=== PATIENT | male | born 1980 | race Caucasian/White ===

== ENCOUNTER 2024-07-08 19:11 | Emergency (ER) | payer OTHER, SELFPAY ==
--- NOTE | 2024-07-08 19:19 | ED.CHESTPAIN ---
HPI - Chest Pain General Stated Complaint: Chest Pain/Back Pain Source: patient and RN notes reviewed Mode of arrival: ambulatory Limitations: no limitations History of Present Illness HPI narrative: Patient is a 43-year-old male who presents to the [facility] with complaints of left-sided chest pain. Patient states that the chest pain radiates into his back and neck. He describes the pain as an intermittent pressure. The pain started a few days ago but worsened in severity today. He denies any accompanying nausea or dizziness. States that he has had some slight shortness of breath with the pain. He denies recent cough for, illness, or fever. Denies any cardiac history. Related Data Allergies Allergy/AdvReac Type Severity Reaction Status Date / Time strawberry AdvReac Severe Unknown Unverified 08/13/23 11:51 amoxicillin AdvReac Intermediate Hives Verified 08/13/23 11:51 Review of Systems Review of Systems: CONSTITUTIONAL: Denies fever, chills, or sweats. EYES: Denies visual changes, redness, or discharge. ENT: Denies otalgia and sore throat CARDIOVASCULAR: Reports chest pain but denies palpitations or edema. RESPIRATORY: Denies cough but reports intermittent dyspnea. GASTROINTESTINAL: Denies abdominal pain, nausea, vomiting, or diarrhea. GENITOURINARY: Denies dysuria or hematuria. SKIN: Denies rash or itching. MUSCULOSKELETAL: Reports back pain, but denies joint pain or myalgia. NEUROLOGIC: Denies headache, numbness, or weakness. Pertinent positives per HPI. PMFSH Comments At the time of my signature, I reviewed and agree with the nursing past medical, surgical, social, and family history. There is no relevant family history pertinent to the patient complaint. Exam Narrative: GENERAL: This is a well-nourished, well-developed patient, in no apparent distress. HEAD: normocephalic, atraumatic. EYES: Sclera clear/white. Vision is grossly intact. EARS: External ears normal. Hearing grossly intact. NOSE: External nose normal with no obvious nasal discharge, nares without redness, no rhinorrhea. THROAT: Mucous membranes moist, posterior pharynx clear. NECK: Neck supple, non-tender without lymphadenopathy, masses or thyromegaly. CARDIOVASCULAR: Regular rate and rhythm without murmurs, gallops, or rubs. RESPIRATORY: Clear to auscultation. Breath sounds equal bilaterally. No wheezes, rales, or rhonchi. GASTROINTESTINAL: Abdomen soft, non-tender, nondistended. Bowel sounds are active. No hepato-splenomegaly, or palpable masses. No guarding. SKIN: warm, intact with no suspicious lesions or rash, good texture and turgor. NEURO: awake, alert, and oriented to person, place and time. There were no obvious focal neurologic abnormalities. Course Course Level of Care: Express Care Visit Vital Signs Vital signs: Vital Signs Temperature 98.4 F 07/08/24 19:20 Pulse Rate 71 07/08/24 19:20 Respiratory Rate 16 07/08/24 19:20 Blood Pressure 126/81 07/08/24 19:20 Pulse Oximetry 99 07/08/24 19:20 Temperature 98.4 F 07/08/24 19:20 Pulse Rate 71 07/08/24 19:20 Respiratory Rate 16 07/08/24 19:20 Blood Pressure 126/81 07/08/24 19:20 Pulse Oximetry 99 07/08/24 19:20 Reviewed Transfer Transfered to: [facility] Transportation: Other (private vehicle) Transfer rationale: Appropriate testing, evaluation, and treatment of chest pain Accepting physician: CATRINA Billings [facility] - Chest Pain MDM Narrative Medical decision making narrative: Patient transferred to [facility] for appropriate testing, evaluation, and treatment chest pain. Accepting provider is CATRINA Billings. Patient offered ambulance transport but declined; will transport via private vehicle. Differential Diagnosis Differential diagnosis: Likely stable angina, atypical chest pain and chest pain ECG Data EKG #1: ECG completion date: 07/08/24 ECG completion time: 19:32 Interpretation: Sinus bradycardia. Normal axis, normal intervals, no acute ST elevation. Critical Care Time Critical Care Time Critical Care Time: No Discharge Plan Discharge Clinical Impression: Chest pain Qualifiers: Chest pain type: unspecified Qualified Code(s): R07.9 - Chest pain, unspecified Patient Disposition: Acute Care Hospital Condition: Stable Additional Instructions: Go directly to [facility] for evaluation. Patient Language: Latvian Follow-up/Referrals: PHYSICIAN,QUARTER BACKER [Primary Care Provider] - Time of Disposition: 19:35
[2024-07-08 19:20] VITALS: BP 126/81; PULSE 71; RESP 16; TEMP 36.9; O2SAT 99
--- NOTE | 2024-07-08 19:22 | ECG_ITS ---
Test Date: 2024-07-08 19:32:59 Measurements Intervals [place] Rate: 59 P: 29 MO: 151 QRS: 10 QRSD: 108 T: 14 QT: 383 QTc: 382 Interpretive Statements SINUS BRADYCARDIA BASELINE ARTIFACT- I, II, III, AVR, AVL, AVF, V1-V6 BORDERLINE ECG No previous ECG available for comparison Electronically Signed On 07-08-2024 19:58:56 LEAD DENTAL ASSISTANT by Saran Vidal D.O.
== END 2024-07-08 19:33 | disposition short-term general hospital (02) ==
PROVIDERS: Emergency Provider Nurse Practitioner
DX: R07.9 Chest pain, unspecified (principal)
CPT/HCPCS: 93005; 99213; G0463

== ENCOUNTER 2024-07-08 20:22 | Emergency (ER) | payer OTHER, SELFPAY ==
--- NOTE | ~2024-07-08 | XR_ITS ---
CHEST RADIOGRAPH, PA AND LATERAL CLINICAL HISTORY: cp . COMPARISON: None available TECHNIQUE: PA and lateral views of the chest. FINDINGS The cardiomediastinal silhouette is unremarkable. The lungs are clear. Visualized osseous structures and soft tissues are unremarkable. IMPRESSION: No focal infiltrate or effusion. Reviewed, dictated and finalized at location A. OR ADVISORY
[2024-07-08 20:24] VITALS: BP 150/85; PULSE 61; RESP 15; TEMP 37.1; O2SAT 99
--- OUTSIDE RECORDS SUMMARY | 2024-07-08 20:24 | XMS_ITS | CONTINUITY OF CARE DOCUMENT ---
Author Name александр janissundar Address Unknown Organization [facility] Address [address] [place] [address] Phone [phone] Care Team Providers Care Emt/Dispatcher Name Role Phone Bennett Olivo MD Unavailable [phone] TAI HOLGUIN MD Unavailable [phone] TAI HOLGUIN MD Unavailable [phone] PROBLEMS Condition Status Date Provider Notes Cardiology examination active Bennett Olivo MD Chest pain active Bennett Olivo MD Anxiety active Bennett Olivo MD Near syncope active Bennett Olivo MD ENCOUNTERS Date Type Provider Location Encounter Diag nosis - In-person encounter Office Visit Bennett Olivo MD [facility] AnxietyNear syncope - In-person encounter Office Visit Bennett Olivo MD [facility] Cardiology examinationChest pain VITAL SIGNS Date Observation Value Provider Body Mass Index (Ratio) 33.57 kg/m2 Yobany Olivo MD pulse rate 60 /min Tino abhi y blood pressure, cuff size regular Ja rret blood pressure, diastolic 79 mm[Hg] Ja rret blood pressure, systolic 130 mm[Hg] Jar ret respiratory rate E&M 12 /min oxygen saturation, oximetry 98 % weight E&M 234 [lb_av] Tino y height E&M 70 [in_i] Tino y weight E&M 230 [lb_av] Jeannie Mcfarlane in Body Mass Index (Ratio) 33.00 kg/m2 Yobany Olivo MD blood pressure, diastolic 77 mm[Hg] Zee Chamberlain blood pressure, systolic 117 mm[Hg] Denys Chamberlain oxygen saturation, oximetry 97 % Lenore Chamberlain pulse rate 65 /min Lenore vines height E&M 70 [in_i] Lenore vines weight E&M 230 [lb_av] Lenore vines respiratory rate E&M 16 /min Hetal Chamberlain blood pressure, cuff size large Zee Chamberlain ALLERGIES Allergy Name Onset Date Reaction Criticality Status AMOXICILLIN Low Criticality active HISTORY OF MEDICATION USE No Known Medication SOCIAL HISTORY Date Observation Value Provider drug use, illicit, d rug of choice marijuana Bennett Olivo MD drug use yes Bennett Olivo MD alcohol use no Bennett Olivo MD social history reviewed E&M revi ewed - no changes required Bennett Olivo MD social history E&M S moking History: P atient currently smokes every day. P atient has been counseled to quit. Bennett Olivo MD smoking/tobacco cess ation, patient education and counseling yes Bennett Olivo MD smoking status Current every day smoker U fidel Olivo MD drug use, illicit, d rug of choice marijuana Bennett Olivo MD drug use yes Bennett Olivo MD alcohol use, average drinks per day 1 /d Bennett Olivo MD alcohol use yes Bennett Olivo MD smoking/tobacco cess ation, patient education and counseling yes Bennett Olivo MD social history E&M S moking History: P kirsten currently smokes every day. P atregina has been counseled to quit. Bennett Olivo MD social history reviewed E&M revi ewed - no changes required Bennett Olivo MD smoking history, tot al pack/day 1 Lenore Chamberlain cigarette use yes Lenore Betancur nd smoking status Current every day smoker M vishal Chamberlain INSURANCE PROVIDERS Payer name Policy type / Coverage type [place] red alliance party ID [id number] [place] 77 [id number] ADVANCE DIRECTIVES Name Date DISCUSSED - NO DECISION MADE TREATMENT PLAN Date Name Performer [id number],C,n o recurrence since August 2022. stable. Bennett Olivo MD [id number],C,does not use medication, uses therapy Bennett Olivo MD [id number],C,denies any CP Bennett Olivo MD [id number],C,A typical. WIll do a routine stress test and an echo Bennett Olivo MD Cardiology:no recurr ence since August 2022. stable. Bennett Olivo MD Cardiology:does not use medicati on, uses therapy Bennett Olivo MD Cardiology:denies any CP Bennett workman MD Cardiology:Atypical. WIll do a routine stress test and an echo Bennett Olivo MD Date Name TSH, 3RD GENERATION W/REFLEX TO FT4 LIPID PANEL COMPREHENSIVE METABO LIC PANEL, W/EGFR Complete Echo Stress Routine HISTORY OF PROCEDURES Procedure Date Procedure Name Provider Procedure Notes S tatus EKG Bennett Olivo MD completed
--- OUTSIDE RECORDS SUMMARY | 2024-07-08 20:24 | XMS_ITS | Data Portability ---
Author Organization [place] - [facility] [employer], Main Office Address [address] [place] [address] Assessment Encounter Date Assessment Date Assessment LastModified by Organization Details LastModified Time 01/17/2023 01/17/2023 Assessment: LYNDSEY PLMD Hypoventilation Plan: The following were reviewed and explained to the patient: primary care/referral note [facility] home sleep study 11/30/21 RDI = 21, supine RDI = 30 General information on sleep disordered breathing, evaluation of sleep disordered breathing, treatment with PAP therapy, and living with PAP therapy were covered. PSG is medically necessary to determine the degree of and management of sleep apnea. Split night sleep study ordered. We discussed with the patient the impact of weight on: Sleep disordered breathing We discussed with the patient the benefit of PAP therapy on: Sleep disordered breathing Mood disorder Educated the patient on sleep hygiene measures. Relaxing rituals to rest easy, understanding foods with positive and negative impact on sleep, creating a peaceful sleep environment, timing of exercise, using herbal sleep aids, and practicing sleep-friendly meditation were covered. To determine how much sleep is needed, the patient will assess where he falls on the spectrum, examine what lifestyle factors such as work schedules and stress are affecting the quality and quantity of sleep. In general, adults need 7-9 hours of sleep. Educated the patient regarding foods that promote sleep. These include but are not limited to cherries, bananas, toast, oatmeal, and warm milk. Educated the patient regarding foods and drinks to avoid before bedtime. These include but are not limited to aged cheese, chocolate, spicy foods, tomato-based sauces, soy, ginseng tea and processed meat. Advocated influenza vaccination annually and pneumonia vaccination in 2044. Advocated weight loss through diet and exercise. Patient's ideal body weight according to height and gender is up to 180 lbs. Encouraged patient to adjust caloric intake to maintain/achieve ideal body weight, emphasizing on fruits, vegetables, whole grains, and fat-free or low-fat products. These include lean meats, poultry, fish, beans, eggs, and nuts and foods that are low in saturated fats, trans-fats, cholesterol, salt (sodium), and glycemic index. Stressed the importance of regular exercise up to the patient's capacity limits. In this case, we recommend 20 min daily walking, 2 days a week of resistance training. Patient to monitor BP daily and bring records to PCP for further management. Follow-up: 1 week after split night sleep study [email or web address] Not available 01/17/2023 11:29:18 Plan of Treatment Reminders Order Date Submit Date Provider Last Modified By Organization Details Last Modified Time Details Appointments None recorded. Lab None recorded. Referral None recorded. Procedures None recorded. Surgeries None recorded. Imaging polysomnog keara, split night - No Auth required 2022 023 [email or web address] [address] [facility], [address] [place], [address], 14:23:55 Medication Orders None recorded. Patient TargetsNo targets recorded. Patient InstructionsNo instructions recorded. Reason for Referral None Reported. Results Created Date Observation Date Name Description Value Unit Range Abnormal Flag Note LastModifiedBy Organization Detail LastModifiedTime 01/18/2011/30/2021 polys omnog keara, diagn ostic , 6 yrs or older No observ ation record ed. BARCODE Not Available 2022 09:54:44 Result Notes None recorded. 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 Procedures Surgical History None recorded. Imaging Results Imaging Date Name Status LastModified by Organiz ation Details LastModified Time 11/30/2021 polysomnogr am, diagnostic, 6 yrs or older completed BARCODE Information not available 01/17/2023 09:54:44 Procedure Notes None recorded. Medical Equipment None Reported. Allergies Allergen ID Allergen Name Allergen Category Reaction Reaction Severity Criticality Documentation Date Start Date Code Code System Note Provider Name and Address Organization Details Recorded Time 00120 amoxicill in medicatio n hives Not available Not available 07/27/2022 723 RxNorm Not Available [facility] 3 01:00:19 Medications Name Sig Start Date Stop Date Status Note LastModified by Organization Details LastModified Time moxifloxaci n 400 mg tablet TAKE 1 TABLET BY MOUTH EVERY DAY FOR 7 DAYS 01/17 completed Not Available Not Available Not Available acetaminoph en 300 mg-codeine 30 mg tablet 01/17 completed Not Available Not Available Not Available ID NOW COVID-19 Test Kit TEST DIRECTED TODAY 11/03 completed Not Available Not Available Not Available Vitals Date Recorded Body mass index (BMI) Body mass index (BMI) Body height Body height Oxygen saturation Oxygen saturation in Arterial blood by Pulse oximetry Oxygen saturation Oxygen saturation in Arterial blood by Pulse oximetry Heart rate Body temperature Body temperature Body weight Body weight Systolic blood pressure Diastolic blood pressure Provider Name and Address Organization Details Last Updated DateTime 3 33.3 kg/m2 33.3 kg/m2 177.8 cm 177.8 cm 98 % 98 % 99 % 99 % 91 /min 98.2 [degF] 98.2 [degF] 612966. 43 g 925573. 43 g 139 mm[Hg] 85 mm[Hg] Not Available [facility] 3 00:58:26 Date Recorded Body height Body mass index (BMI) Body weight Body temperature Heart rate Oxygen saturation Oxygen saturation in Arterial blood by Pulse oximetry Systolic blood pressure Diastolic blood pressure Provider Name and Address Organization Details Last Updated DateTime 3 177.8 cm 33 kg/m2 193634. 25 g 98.3 [degF] 63 /min 96 % 96 % 114 mm[Hg] 70 mm[Hg] BENJAMIN Molina - S [place] [employer] 11:00:37 Date Recorded Heart rate Respiratory rate Provider Yousuf wall and Address Organization Details Last Updated DateTime 01/17/2023 63 /min 15 /min Guille Ramsey MD [address], [facility] [address], [place], [address], [facility] [employer] [facility] 01/17/2023 11:05:36 Social History Question Answer Notes LastModified by Organizat ion Details LastModified Time Tobacco Smoking Status Former Smoker Aminah Howell MA null, [facility] [employer] [facility] 01/17/2023 10:54:41 What Is Your Level Of Alcohol Consumption? Occasional [id number] Information not available 07/27/2022 What Is Your Level Of Caffeine Consumption? Occasional [id number] Information not available 07/27/2022 In The 14 Days Before Symptom Onset, Have You Had Close Contact With A Laboratory-confir med COVID-19 While That Case Was Ill? No Information not available 01/17/2023 In The 14 Days Before Symptom Onset, Have You Had Close Contact With A Person Who Is Under Investigation For COVID-19 While That Person Was Ill? No Information not available 01/17/2023 Are You Currently Employed? Yes Information not available 01/17/2023 What Type Of Diet Are You Following? REGULAR Information not available 01/17/2023 Which Illicit Or Recreational Drugs Have You Used? Marijuana [id number] Information not available 07/27/2022 Do You Or Have You Ever Used E-cigarettes Or Vape? Current User Of Electronic Cigarettes Information not available 01/17/2023 Do You Have An Electrostatic Air Filter? 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 No Information not available 01/17/2023 Do You Have A Humidifier? Yes Information not available 01/17/2023 Do You Have Moisture Problems In Your Home? No Information not available 01/17/2023 What Was The Date Of Your Most Recent Tobacco Screening? 01/17/2023 Information not available 01/17/2023 Have You Ever Been Counseled For Unhealthy Alcohol Use? No [id number] Information not available 07/27/2022 Do You Have Any Pets? No Information not available 01/17/2023 Do You Use Your Seat Belt Or Car Seat Routinely? Yes Information not available 01/17/2023 Do You Have Smoke And Carbon Monoxide Detectors In Your Home? Yes Information not available 01/17/2023 Are You Passively Exposed To Smoke? No Information no t available 01/17/2023 Do You Or Have You Ever Used Smokeless Tobacco? Never Used Smokeless Tobacco Information not available 01/17/2023 Do You Use Any Illicit Or Recreational Drugs? Yes [id number] Information not available 07/27/2022 Do You Use Sunscreen Routinely? Yes Information not available 01/17/2023 Has Tobacco Cessation Counseling Been Provided? No [id number] Information not available 07/27/2022 Have You Recently Traveled Abroad? No Information not available 01/17/2023 Have You Used IV Drugs? No [id number] Information not available 07/27/2022 Do You Have Any Dietary Restrictions? No Information not available 01/17/2023 Do You Or Have You Ever Used Any Other Forms Of Tobacco Or Nicotine? Yes Information not available 01/17/2023 Sex: Unknown Functional Status Question Answer Note LastModified by Organizat ion Details LastModified Time What is your exercise level? Occasional Information not available 01/17/2023 Mental Status None recorded. Family History Relationship Description Onset Age of this Age Resolved Age Notes LastModified by Organization Details LastModified Time Mother Hypertensive disorder [id number] Not available 07/27/2022 00:58:04 Father Leukemia [email or web address] Not available 0 01/16/2023 18:52:06 Paternal Grandmother Malignant tumor of breast [email or web address] Not available 2022 18:52:40 Maternal Grandmother Malignant tumor of breast [email or web address] Not available 2022 18:52:55 Maternal Grandfather Malignant tumor of lung [email or web address] Not available 2022 18:53:05 Daughter Obstructive sleep apnea syndrome [email or web address] Not available 2022 18:53:58 Medical History Condition Response BLINDNESS N CYSTITIS N RHEUMATIC FEVER N BLADDER PROBLEMS N KIDNEY STONES N Enlarged Prostate N MRSA N SLEEP APNEA N INFECTIOUS DISEASE N HEART ARRHYTHMIA N LUNG DISEASE/DISORDER N PROSTATE N INSOMNIA N HISTORY OF DRUG ABUSE N COPD N RADIATION / CHEMOTHERAPY N HIGH CHOLESTEROL / HYPERLIPIDEMIA N HYPERTHYROIDISM N UTI N BLOOD DISEASES N EDEMA N HYPOTHYROIDISM N SHINGLES N BOWEL PROBLEMS N DEPRESSION (INCLUDING POST ) Y BACK / NECK PROBLEMS N HAVE YOU BEEN HOSPITALIZED OR SEEN IN [facility] ER IN THE PAST YEAR ? N STROKE/TIA N THYROID DISEASE N BENIGN PROSTATIC HYPERPLASIA N DIALYSIS N OBESITY N GERD/NAUSEA N ANEURYSM N OSTEOPOROSIS N URINARY/BLADDER/KIDNEY PROBLEMS N Increased Urination N CORONARY ARTERY DISEASE (CAD) N ARTHRITIS N USE OF BLOOD THINNERS N NO SIGNIFICANT PAST MEDICAL HISTORY N DIABETES, TYPE N EMPHYSEMA N GASTROINTESTINAL DISORDER N PARKINSON N GASTROINTESTINAL BLEEDING N BLOOD CLOTS N Difficulty Urinating N ASTHMA N HEPATITIS / LIVER DISEASE N CATARACTS N GOUT N SLEEP DISORDER N ALZHEIMER'S DISEASE N ERECTILE DYSFUNCTION N HERPES N HEADACHES/MIGRAINES N SEIZURES/EPILEPSY N GI PROBLEMS N Low Testosterone N HEART MURMUR N PACEMAKER N DIZZINESS N HEART DISEASE/HEART PROBLEMS N AIDS/HIV N KIDNEY DISEASE N MULTIPLE SCLEROSIS N LIVER DISEASE N MALE HYPOGONADISM N HYPERTENSION N CANCER: SPECIFY N TOURETTE'S N BLOOD TRANSFUSION N ANESTHESIA COMPLICATIONS N ANEMIA/BLOOD DISORDER N ATRIAL FIBRILLATION N AUTOIMMUNE DISEASE N TUBERCULOSIS N GLAUCOMA N Past Encounters Encounter ID Performer Location Encounter Start Date Encounter Closed Date Diagnosis/Indication Diagnosis SNOMED-CT Code Diagnosis ICD10 Code Diagnosis Note [id number] [facility] [address] [address] 11/03/2021 00:00:00 11/03/2021 13:23:44 [id number] [facility] [address] [address] 12/15/2021 00:00:00 12/15/2021 11:51:04 [id number] Guille Ramsey MD [facility] [address], [facility] [address] [place] [address] 01/17/2023 10:39:35 01/17/2023 11:31:02 Sleep apnea 52417061 G47.30 G47.33 G47.36 G47.61 Health Concerns Section Related Observation LastModified by Organization Detai ls LastModified Time None Recorded Concern Status LastModified by Organization Details LastModified Time None Recorded Advance Directives Directive None Recorded Payers Encounter Date Sequence Insurance Name Policy Number Policy Perez Covered Member ID Perez Member ID Guarantor Name 01/17/2023 1 [employer] - [employer] (PPO) Josh Villatoro [id number] Josh Villatoro Notes Date Note Type Note Provider Name and Address Organization Details Recorded Time 01/17/2023 text/html Primary care/Ref erring provider: Jan Sherman MD During the [facility] home sleep study on 11/30/21, RDI = 21, supine RDI = 30. At home, the patient sleeps from 3 am to 10 am and wakes up without an alarm. Snoring: moderate, since .Snorting: noChoking: noCoughing: yesGasping: noGagging: noSighing: yesWitnessed apnea: yesTwitching or jerking of leg(s), arm(s), body, head: yesTeeth grinding: noTeeth clenching: noSleeptalking: yesSleepwalking: noSleep crying: noBedwetting: noTongue/lip/gum/cheek biting: noSleeping with open mouth: yesSleep paralysis: noHypnagogic hallucinations: noHypnopompic hallucinations: noVivid dreams: noDifficulty with sleep onset: yesDifficulty with sleep maintenance: yesSleep interruptions: for no known reasonsPatient wakes up with: fatigue, xerostomia, sore throat, hoarse voice, headaches, disorientation, cognitive impairmentDaytime cataplexy: noMorning hypersomnolence: noAfternoon hypersomnolence: yesCaffeine sources in diet: coffee 1 cup per day, tea 1 cup per day Associated medical and psychiatric conditions:Congestive heart failure: noCoronary artery disease: noMyocardial infarction: noHypertension: noStroke: noBronchial asthma: noChronic obstructive pulmonary disease: noDepression: noBipolar disorder: noAnxiety: noPanic disorder: noPosttraumatic stress disorder: noAttention deficit and hyperactivity disorder: noObsessive Compulsive disorder: noSchizophrenia: noSchizoaffective disorder: noPersonality disorder: noChronic analgesic use: noChronic sedative/hypnotic use: no EPWORTH SLEEPINESS SCALE (ESS) CHANCE OF DOZING SCORE0 = would never doze1 = slight chance of dozing2 = moderate chance of dozing3 = high chance of dozing SITUATION AND CHANCE OF DOZINGSitting and reading - 3Watching television - 3Sitting inactive in a public place (e.g. a theater or meeting) - 0As a passenger in a car for an hour without a break - 3Lying down to rest in the afternoon when circumstances permit - 1Sitting and talking to someone - 0Sitting quietly after lunch without alcohol - 0In a car, while stopped for a few minutes in the traffic - 0TOTAL SCORE 10Subjectively, patient has a moderate chance of dozing. Guille Ramsey MD [address] [place] [address], [place] [address], [place], [address], [place] [facility] 01/17/2023 11:29:28
--- OUTSIDE RECORDS SUMMARY | 2024-07-08 20:24 | XMS_ITS | Clinical Summary ---
Author Organization [facility] [employer] [place] Address [address] [facility] [address] [place] [address] Care Team Providers Care Stave Grader Name Role Phone Unavailable Primary Care Provider Unavailabl e Allergies Active Allergy Reactions Criticality Noted Date Comments Amoxicillin Hives High 01/13/2020 Medications No known medications Active Problems No known active problems Encounters Date Type Department Care Team Description 07/01/2024 External Device Data [facility]STRACTION Provider, Abstract 06/18/2024 External Device Data [facility] Provider, Abstract 06/17/2024 External Device Data [facility]STRACTION Provider, Abstract from Last 3 Months Immunizations Immunization Administration Dates Next Due (ADACEL/BOOSTRIX)(10 YR UP) TDAP VACCINE, 0.5ML, IM 01/13/2020 Family History Medical History Relation Name Comments Asthma Brother Han Villatoro Asthma Daughter Mckenzie Villatoro Hypertension Father Rayray Villatoro Leukemia Father Rayray Villatoro Other Father Rayray Villatoro hepatitis C Cancer Maternal Grandfather Cancer Maternal Grandmother Hypertension Mother Shanta Villatoro Cancer Paternal Grandfather Cancer Paternal Grandmother No Known Problems Sister Relation Name Status Comments Brother Han [place] Alive Daughter Mckenzie [place] Alive Father Rayray Villatoro Maternal Grandfather Maternal Grandmother Mother Shanta Villatoro Alive Paternal Grandfather Paternal Grandmother Sister Alive Social History Tobacco Use Types Packs/Day Years Used Date Smoking Tobacco: Former Cigarettes 0.3 5 0 05/28/2011 - 05/28/2016 Cigars Smokeless Tobacco: Never Alcohol Use Standard Drinks/Week Comments Yes 4 (1 standard drink = 0.6 oz pur e alcohol) Sex and Gender Information Value Date Recorded Sex Assigned at Not on file Legal Sex Male 11:52 AM CDT Gender Identity Not on file Sexual Orientation Not on file Last Filed Vital Signs Vital Sign Reading Time Taken Comments Blood Pressure 124/74 10/03/2023 2:21 PM CDT Pulse 71 01/13/2020 10:40 AM CDT Temperature 36.4 C (97.6 F) 01/13/2020 10:40 AM CDT Respiratory Rate 18 01/13/2020 10:40 AM CDT Oxygen Saturation 98% 01/13/2020 10:40 AM CDT Inhaled Oxygen Concentration - - Weight 102.1 kg (225 lb) 10/03/2023 2:21 PM CDT Height 177.8 cm (5' 10 ) 10/03/2023 2:21 PM CDT Body Mass Index 32.28 10/03/2023 2:21 PM CDT Plan of Treatment Health Maintenance Due Date Last Done Comments Pre-Diabetes and Diabetes Screening 1979 HEPATITIS B VACCINES (1 of 3 - 19+ 3-dose series) 11/17/1998 INFLUENZA VACCINE (#1) 2023 DTAP/TDAP/TD VACCINES (2 - T d or Tdap) 01/12/2030 01/13/2020 HPV VACCINES Aged Out No longer eligi ble based on patient's age to complete this topic PNEUMOCOCCAL VACCINE 0-64 YEARS Aged Out No longer eligible based on patient's age to complete this topic Insurance [address] [place] [address] [facility] OPEN ACCESS * Guarantor: [employer]C) Account Type Relation to Patient Date of Phone Billing Address Corporate Employer ATTN: [employer] [address] [address] [employer]
--- NOTE | 2024-07-08 20:28 | ECG_ITS ---
Test Date: 2024-07-08 20:31:09 Measurements Intervals [place] Rate: 60 P: 7 AL: 125 QRS: 17 QRSD: 104 T: 31 QT: 355 QTc: 356 Interpretive Statements SINUS RHYTHM BASELINE ARTIFACT- I, II, III, AVR, AVL NORMAL ECG Compared to ECG 07/08/2024 19:32:59 NO SIGNIFICANT CHANGE Electronically Signed On 07-09-2024 07:10:33 HAMMER SMITH by Saran Vidal D.O.
[2024-07-08 20:46] LABS: Basophils Percent Auto 0.3 % (0.2-1.2); Eosinophils Percent Auto 0.7 % (0-4.4); Hemoglobin 14.1 g/dL (14.0-18.0); Immature Granulocyte Absolute 0.01 K/mm3 (0.00-0.031); Immature Granulocyte Percent A 0.2 % (0-0.5); Lymphocytes Absolute Auto 1.38 K/mm3 (0.9-3.2); Lymphocytes Percent Auto 23.4 % (18.3-44.2); Mean Corpuscular HGB Conc 34.4 g/dl (32-36); Mean Corpuscular Hemoglobin 31.8 pg (26-34); Mean Corpuscular Volume 92.3 fl (80-100); Mean Platelet Volume 9.8 fl (7.4-10.4); Monocytes Absolute Auto 0.7 K/mm3 (0.1-0.6); Monocytes Percent Auto 12.4 % (2.6-8.5); Neutrophils Absolute Auto 3.7 K/mm3 (1.3-6.7); Platelet Count Result 210 k/mm3 (150-375); Red Blood Count 4.44 M/mm3 (4.6-6.20); Red Cell Distribution Width 12.5 % (11.5-14.5); White Blood Count 5.9 K/mm3 (4.5-10.0)
[2024-07-08 20:59] LABS: INR 0.9; Prothrombin Time 12.9 Seconds (11.1-14.7)
[2024-07-08 21:00] LABS: Partial Thromboplastin Time 27.2 Seconds (22.3-36.8)
[2024-07-08 21:34] LABS: Alanine Aminotransferase 35 U/L (6-50); Albumin Level 4.1 g/dL (3.5-5.1); Alkaline Phosphatase 59 U/L (38-126); Anion Gap 10 mmol/L (4-12); Aspartate Amino Transferase 34 U/L (17-59); Bilirubin,Total 0.5 mg/dL (0.2-1.3); Blood Urea Nitrogen 11 mg/dL (9-20); Calcium 8.9 mg/dL (8.4-10.2); Carbon Dioxide 23 mmol/L (22-30); Chloride 105 mmol/L (98-107); Estimated CRCL calculation 116 ml/min; Estimated Glomerular Filt Rate > 60; Glucose 86 mg/dL (65-110); Lipase 56 U/L (23-300); Sodium 138 mmol/L (137-145); Troponin I < 0.012 ng/mL (0.000-0.034)
--- NOTE | 2024-07-08 23:28 | ECG_ITS ---
Test Date: 2024-07-08 23:34:04 Measurements Intervals [place] Rate: 55 P: 9 NV: 128 QRS: 24 QRSD: 105 T: 29 QT: 385 QTc: 368 Interpretive Statements SINUS BRADYCARDIA BORDERLINE ECG Compared to ECG 07/08/2024 20:31:09 HEART RATE HAS DECREASED Electronically Signed On 07-09-2024 07:04:26 CHARTERED ACCOUNTANT by Saran Vidal D.O.
--- OUTSIDE RECORDS SUMMARY | 2024-07-08 23:53 | XMS_ITS | CONTINUITY OF CARE DOCUMENT ---
Author Name алкесандр janissundar Address Unknown Organization [facility] Address [address] [facility] [address] [place] [address] Phone [phone] Care Team Providers Care Air Conditioning Supervisor Name Role Phone Bennett Olivo MD Unavailable TAI HOLGUIN MD Unavailable TAI HOLGUIN MD Unavailable [phone] PROBLEMS Condition Status Date Provider Notes Cardiology examination active Bennett Olivo MD Chest pain active Bennett Olivo MD Anxiety active Bennett Olivo MD Near syncope active Bennett Olivo MD ENCOUNTERS Date Type Provider Location Encounter Diag nosis - In-person encounter Office Visit Bennett Olivo MD [facility] AnxietyNear syncope - In-person encounter Office Visit Bennett Olivo MD [facility] Cardiology examinationChest pain VITAL SIGNS Date [...] Payer name Policy type / Coverage type [place] red republican ID CIGNA\[facility] [employer] 77 [id number] ADVANCE DIRECTIVES Name Date DISCUSSED - NO DECISION MADE TREATMENT PLAN Date Name Performer [id number],C,n o recurrence since August 2022. stable. Bennett Olivo MD [id number],C,does not use medication, uses therapy Bennett Olivo MD [id number],C,denies any CP Bennett Olivo MD [id number],C,A typical. WIll do a routine stress test [...]
--- OUTSIDE RECORDS SUMMARY | 2024-07-08 23:53 | XMS_ITS | Clinical Summary ---
Author Organization [facility] [place] Address [address] [facility] [address] [place] [address] Care Team Providers Care Chicken Catcher Name Role Phone Unavailable Primary Care Provider [...] Sister Relation Name Status Comments Brother Han Murray Alive Daughter Mckenzie Murray Alive Father Rayray Villatoro Maternal Grandfather Maternal [...] to complete this topic Insurance [address] [place] [address] COUNTS INCLUDE 234 BEDS AT THE [facility] OPEN ACCESS * Guarantor: [employer]) Account Type Relation to Patient Date of Phone Billing Address Corporate Employer ATTN: [employer] [address] [address] [employer]
[2024-07-09 00:04] VITALS: O2SAT 99
--- NOTE | 2024-07-09 00:05 | ED_ITS ---
HPI - Chest Pain General Chief Complaint: Chest Pain Stated Complaint: chest pain Time Seen by Provider: 07/08/24 23:35 Source: patient Mode of arrival: ambulatory Limitations: no limitations History of Present Illness HPI narrative: Patient presents with chest pain that started faintly. Left sided for the past 3 days. Described as a pressure that radiates to left back, occurring intermittently. Also having body aches with intermittent right flank pain (yesterday, not now) and right neck pain/tightness. He has felt more lethargic. Has not taken anything at home for pain, not even Tylenol/ibuprofen. Has had a dry non productive cough. No nausea/vomiting/fever/chills. No cardiac history or respiratory history. Patient states he has a primary care physician helped him arrange a stress test last year which was normal. Has not followed with that custom applicator since. Denies shortness of breath except when he went outside in the cold. Denies lower extremity edema, hemoptysis, recent travel/surgery/trauma, prior PE/DVT, or exogenous hormones. Cardiac risk factors: HTN - , HLD - , smoke + (vape nicotine), obese +, DM - , prior SD/TIA/CVA - , Fam Hx SD <65yo - Related Data Allergies Allergy/AdvReac Type Severity Reaction Status Date / Time strawberry AdvReac Severe Unknown Verified 07/08/24 20:49 amoxicillin AdvReac Intermediate Hives Verified 07/08/24 20:49 PMFSH Family History Family History (Updated 07/10/24 @ 21:32 by Sangeeta Posada MD) Mother Hypertension Father Hypertension Sibling Asthma Social History Social History (Updated 07/10/24 @ 21:37 by Sangeeta Posada MD) Tobacco type: e-cigarettes/vaping Exam 2 Narrative: GENERAL: Well-appearing, well-nourished, and in no acute distress. HEAD: Normocephalic, atraumatic. EYES: Non injected, non icteric ENT: Nares clear, no rhinorrhea or epistaxis. NECK: Supple. CHEST: Speaking in full sentences. No respiratory distress. non labored. Clear to auscultation. HEART: Regular rate and rhythm. . ABDOMEN: Soft, nondistended. EXTREMITIES: Normal range of motion. No lower extremity edema. : No CVA tenderness. SKIN: Warm, dry, no rash. NEURO: No focal deficits. Alert and oriented x3. PSYCH: Normal mood and affect. Course Vital Signs Vital signs: Vital Signs Temperature 98.8 F 07/08/24 20:24 Pulse Rate 61 07/08/24 20:24 Respiratory Rate 15 07/08/24 20:24 Blood Pressure 150/85 H 07/08/24 20:24 Pulse Oximetry 99 07/08/24 20:24 Oxygen Delivery Room Air 07/08/24 20:24 Temperature 98.8 F 07/08/24 20:24 Pulse Rate 69 07/09/24 02:06 Respiratory Rate 14 07/09/24 02:06 Blood Pressure 144/80 H 07/09/24 02:06 Pulse Oximetry 100 07/09/24 02:06 Oxygen Delivery Room Air 07/09/24 00:04 MDM - Chest Pain MDM Narrative Medical decision making narrative: Patient presents with report of chest pain, intermittently for the past 3 days. Also dry cough and myaglias in right neck and right flank. In the ED he is afebrile with VS notable for hypertension. PERC Rule Age greater than or equal to 50: 0 HR greater than or equal to 100:0 O2 sat room air <95%:0 Unilateral leg swellin Hemoptysis:0 Recent surgery or trauma less than 4 wks ago requiring tx with general anesthesia:0 Prior PE or DVT:0 Hormone use (OCP, HRT or estrogenic hormone use in M/F patients): 0 Will not proceed with work up for PE . HEART SCORE History 2 highly suspicious 1 moderately suspicious 0 slightly suspicious History score [address] depression/elevation not due to LBBB, LVH, or digoxin [address] depression but LBBB, LVH, nonspecific repolarization changes 0 normal ECG score 0 Age 2 >/= 65 1 45-64 0 <45 Age score 0 Risk factors (HTN, hypercholesterolemia, DM, obesity with BMI >30, current smoker or cessation </=3mo), positive fam hx with parent or sibling with CVD before age 65, atherosclerotic disease (prior SD, PCI/CABG, CVA/TIA, or peripheral arterial disease) 2 >/= 3 risk factors or history of atherosclerotic dz 1 - 1-2 risk factors 0 no known risk factors Risk factor score 1 (smoke, obesity) Initial Troponin 2 >3 times normal limit 1 1-3 times normal limit 0 less than or equal to normal limit Troponin score 0 Total HEART Score 2. Repeat trop negative. He has had a cough with no radiographic evidence of a pneumonia. Will treat as bronchitis. No abnormalities on urinalysis including no blood. Discharged in stable condition with prescriptions for OTC analgesic medications and Tessalon perles. Differential Diagnosis Differential diagnosis: Likely pneumothorax, stable angina, unstable angina pectoris, atypical chest pain, st elevation myocardial infarction, chest pain, biliary colic and other (considered aortic dissection (but time course and intermittent nature does not support this); considered kidney stone; viral process) Lab Data Attestation: I reviewed the patient's lab results. 07/08/24 20:39 07/08/24 20:39 Labs: Lab Results 07/08/24 07/08/24 07/09/24 Range/Units 20:39 23:37 00:12 WBC 5.9 (4.5-10.0) K/mm3 RBC 4.44 L (4.6-6.20) M/mm3 Hgb 14.1 (14.0-18.0) g/dL Hct 41.0 L (42.0-52.0) % MCV 92.3 (80-100) fl MCH 31.8 (26-34) pg MCHC 34.4 (32-36) g/dl RDW 12.5 (11.5-14.5) % Plt Count 210 (150-375) k/mm3 MPV 9.8 (7.4-10.4) fl Immature Gran % (Auto) 0.2 (0-0.5) % Neut % (Auto) 63.0 (45.5-73.1) % Lymph % (Auto) 23.4 (18.3-44.2) % [place] % (Auto) 12.4 H (2.6-8.5) % Eos % (Auto) 0.7 (0-4.4) % Baso % (Auto) 0.3 (0.2-1.2) % Lymph # (Auto) 1.38 (0.9-3.2) K/mm3 T[place] # (Auto) 0.7 H (0.1-0.6) K/mm3 Eos # (Auto) 0.0 (0-0.3) K/mm3 Baso # (Auto) 0.0 (0.0-0.1) K/mm3 Abs Immat Gran (auto) 0.01 (0.00-0.031) K/mm3 Absolute Neuts (auto) 3.7 (1.3-6.7) K/mm3 Absolute Nucleated RBC 0.000 (0.0-0.012) K/mm3 Nucleated RBC % 0.0 (0.0-0.2) % PT 12.9 (11.1-14.7) Seconds INR 0.9 APTT 27.2 (22.3-36.8) Seconds Sodium 138 (137-145) mmol/L Potassium 4.0 (3.4-5.0) mmol/L Chloride 105 (98-107) mmol/L Carbon Dioxide 23 (22-30) mmol/L Anion Gap 10 (4-12) mmol/L BUN 11 (9-20) mg/dL Creatinine 0.85 (0.7-1.3) mg/dL Estim Creat Clear Calc 116 ml/min Estimated GFR > 60 (59 - ) Glucose 86 (65-110) mg/dL Calcium 8.9 (8.4-10.2) mg/dL Total Bilirubin 0.5 (0.2-1.3) mg/dL AST 34 (17-59) U/L ALT 35 (6-50) U/L Alkaline Phosphatase 59 (38-126) U/L Troponin I < 0.012 < 0.012 (0.000-0.034) ng/mL Total Protein 7.0 (6.3-8.2) g/dL Albumin 4.1 (3.5-5.1) g/dL Lipase 56 (23-300) U/L Urine Color (Yellow) Urine Appearance (Clear) Urine pH (5.0-9.0) Ur Specific Kimball (1.001-1.035) Urine Protein (Negative) mg/dL Urine Glucose (UA) (Negative) mg/dL Urine Ketones (Negative) mg/dL Ur Blood (Man) (Negative) Urine Nitrate (Negative) Urine Bilirubin (Negative) Urine Urobilinogen (<2.0) mg/dL Leukocyte Esterase Rfl (Negative) NIK/UL Influenza A (RT-PCR) Negative (Negative) Influenza B (RT-PCR) Negative (Negative) RSV (RT-PCR) Negative (Negative) SARS-CoV-2 RNA (RT-PCR) Negative (Negative) 07/09/24 Range/Units 00:34 WBC (4.5-10.0) K/mm3 RBC (4.6-6.20) M/mm3 Hgb (14.0-18.0) g/dL Hct (42.0-52.0) % MCV (80-100) fl MCH (26-34) pg MCHC (32-36) g/dl RDW (11.5-14.5) % Plt Count (150-375) k/mm3 MPV (7.4-10.4) fl Immature Gran % (Auto) (0-0.5) % Neut % (Auto) (45.5-73.1) % Lymph % (Auto) (18.3-44.2) % [place] % (Auto) (2.6-8.5) % Eos % (Auto) (0-4.4) % Baso % (Auto) (0.2-1.2) % Lymph # (Auto) (0.9-3.2) K/mm3 [place] # (Auto) (0.1-0.6) K/mm3 Eos # (Auto) (0-0.3) K/mm3 Baso # (Auto) (0.0-0.1) K/mm3 Abs Immat Gran (auto) (0.00-0.031) K/mm3 Absolute Neuts (auto) (1.3-6.7) K/mm3 Absolute Nucleated RBC (0.0-0.012) K/mm3 Nucleated RBC % (0.0-0.2) % PT (11.1-14.7) Seconds INR APTT (22.3-36.8) Seconds Sodium (137-145) mmol/L Potassium (3.4-5.0) mmol/L Chloride (98-107) mmol/L Carbon Dioxide (22-30) mmol/L Anion Gap (4-12) mmol/L BUN (9-20) mg/dL Creatinine (0.7-1.3) mg/dL Estim Creat Clear Calc ml/min Estimated GFR (59 - ) Glucose (65-110) mg/dL Calcium (8.4-10.2) mg/dL Total Bilirubin (0.2-1.3) mg/dL AST (17-59) U/L ALT (6-50) U/L Alkaline Phosphatase (38-126) U/L Troponin I (0.000-0.034) ng/mL Total Protein (6.3-8.2) g/dL Albumin (3.5-5.1) g/dL Lipase (23-300) U/L Urine Color Yellow (Yellow) Urine Appearance Clear (Clear) Urine pH 7.0 (5.0-9.0) Ur Specific Kimball 1.011 (1.001-1.035) Urine Protein Negative (Negative) mg/dL Urine Glucose (UA) Negative (Negative) mg/dL Urine Ketones Negative (Negative) mg/dL Ur Blood (Man) Negative (Negative) Urine Nitrate Negative (Negative) Urine Bilirubin Negative (Negative) Urine Urobilinogen 1.0 (<2.0) mg/dL Leukocyte Esterase Rfl Negative (Negative) NIK/UL Influenza A (RT-PCR) (Negative) Influenza B (RT-PCR) (Negative) RSV (RT-PCR) (Negative) SARS-CoV-2 RNA (RT-PCR) (Negative) Imaging Data Attestation: I personally reviewed and interpreted this imaging study as follows: My impression: No acute process ECG Data EKG #1: Attestation: I personally reviewed and interpreted this ECG as follows: ECG completion date: 07/08/24 ECG completion time: 23:34 Interpretation: Sinus bradycardia rate of 55 beats per minute. TN interval 128. QRS 105. QT/QTC 385/373. No sinus pauses. Good R-wave progression across the precordial leads. T-wave inversion/flattening in lead 3 but otherwise upright in normal in contiguous inferior leads 2 and AVF. No other T-wave inversions. EKG #2: Attestation: I personally reviewed and interpreted this ECG as follows: ECG completion date: 07/08/24 ECG completion time: 20:31 Interpretation: Normal sinus rhythm at a rate of 60 beats per minute. TN interval 125. QRS 104. QT/QTC 355/356. Good R-wave progression across the precordial leads. No T-wave inversions. Normal ECG. Discharge Plan Discharge Clinical Impression: Chest pain, Bronchitis Patient Disposition: Home, Self-Care Condition: Stable Instructions: Antibiotic Form, Chest Pain (ED), Acute Bronchitis (ED) Additional Instructions: As we discussed, no clear etiology for your symptoms from your workup which included labs, EKG, chest x-ray, viral swab, and urinalysis. The cough without evidence of pneumonia on chest x-ray raises suspicion for bronchitis. This is usually viral (although you tested negative for COVID, influenza a, influenza B, and RSV) so no role for antibiotics. Acetaminophen/Tylenol (maximum 4000 mg per day) is safe to take with NSAIDs (ibuprofen/Motrin) for pain relief. You are also being prescribed other medications that can help with the cough and you can also trial over the counter meds but honey was shown to be just as effective. Follow-up with your primary care physician. Return to the emergency department with any new or worsening symptoms. Patient Language: Haitian Prescriptions: New ibuprofen 600 mg tablet 600 mg PO TID PRN (Reason: pain) Qty: 30 0RF acetaminophen 500 mg capsule 1,000 mg PO Q6H PRN (Reason: pain) Qty: 30 0RF benzonatate 100 mg capsule 100 mg PO BID PRN (Reason: cough) Qty: 20 0RF Follow-up/Referrals: PHYSICIAN,[employer]PER[employer] [Primary Care Provider] - Stand Alone Forms: Work/School Release IP Time of Disposition: 01:21
[2024-07-09 00:07] LABS: Troponin I < 0.012 ng/mL (0.000-0.034)
[2024-07-09 00:46] LABS: Add Urine Microscopic? NO; Appearance Urine Clear (Clear); Bilirubin Urine Negative (Negative); Blood Urine Negative (Negative); Color Urine Yellow (Yellow); Glucose Urine UA Negative (Negative); Ketones Urine Negative (Negative); Leukocyte Esterase Ur Negative LEU/UL (Negative); Nitrate Urine Negative (Negative); Protein Urine Negative (Negative); Specific Grav Ur 1.011 (1.001-1.035)
[2024-07-09] MEDS: ACETAMINOPHEN 500 MG TABLET 1000 MG PO (00:47)
[2024-07-09] MEDS: BENZONATATE 100 MG CAPSULE PO (00:48)
[2024-07-09 00:52] LABS: Influenza A QL RT-PCR Negative (Negative); Influenza B QL RT-PCR Negative (Negative); RSV RNA, RT-PCR Negative (Negative); SARS-CoV-2 RNA PCR Negative (Negative)
[2024-07-09] MEDS: KETOROLAC 30 MG/ML VIAL (*BKC) 15 MG IM (01:15)
[2024-07-09 02:06] VITALS: BP 144/80; PULSE 69; RESP 14; O2SAT 100
== END 2024-07-09 02:08 | disposition home or self-care (01) ==
PROVIDERS: Student in an Organized Health Care Education/Training Program; Emergency Provider Student in an Organized Health Care Education/Training Program
DX: J40 Bronchitis, not specified as acute or chronic (principal); R07.9 Chest pain, unspecified; Z20.822 Contact with and (suspected) exposure to COVID-19; F17.290 Nicotine dependence, other tobacco product, uncomplicated
CPT/HCPCS: 36415; 71046; 80053; 81003; 83690; 84484; 85025; 85610; 85730; 87637; 93005; 96372; 99284; A9270; J1885